=== PATIENT | female | born 1960 | race Two or more races ===

== ENCOUNTER 2020-11-15 08:45 | Emergency (ER) | payer MEDICARE, OTHER ==
[~2020-11-15] VITALS: Ht 175.3 cm; Wt 138.3 kg
[2020-11-15] MEDS ORDERED: ONDANSETRON HCL/PF - ER 4 MG/2 ML VIAL IV ONE (09:00)
[2020-11-15] MEDS ORDERED: MORPHINE SULFATE INJ 2 MG/ML DISP.SYRIN IV ONE (09:00)
[2020-11-15] MEDS ORDERED: MORPHINE SULFATE INJ 4 MG/ML DISP.SYRIN ONE (09:19)
[2020-11-15] MEDS ORDERED: ONDANSETRON HCL/PF 4 MG/2 ML VIAL ONE (09:19)
--- NOTE | 2020-11-15 09:40 | NUR ---
pt rec'd to er c/o rt shoulder apin 10 pt fell iv started left ac 20g labs drawn sent to lab with isidro .
[2020-11-15] MEDS ORDERED: PROPOFOL 20 ML IV ONE (09:55)
[2020-11-15] MEDS ORDERED: PROPOFOL 200 MG/20 ML VIAL IV ONE ×2 (10:00)
--- NOTE | 2020-11-15 10:46 | NUR ---
pt meds given per md order for pain. sent to ct with moises farley pt pt stated 03/17 pt consented for conscious sedation for rt shoulder reposition. rt at bedside
--- NOTE | 2020-11-15 10:48 | NUR ---
1024 pt given 80 of hallie wasserman and rt assistance pt on monitors ; xray done vitasl documented
[2020-11-15] MEDS ORDERED: TRAM50TA2 PO (11:29)
--- NOTE | 2020-11-15 11:43 | NUR ---
pt stated feeling better tolerating water cont to monitor
[2020-11-15 12:25] VITALS: BP 113/78
--- NOTE | 2020-11-15 12:25 | NUR ---
IV removed. Catheter intact and site benign. Pressure and 4x4 applied to site. No bleeding noted. Patient discharged to home in stable condition. Written and verbal after care instructions given. Patient verbalizes understanding of instruction.
== END 2020-11-15 12:25 | disposition home or self-care (01) ==
LOC: ER 08:58
DX: S42.91XA Fracture of right shoulder girdle, part unspecified, initial encounter for closed fracture (principal); S43.004A Unspecified dislocation of right shoulder joint, initial encounter; S00.83XA Contusion of other part of head, initial encounter; I10 Essential (primary) hypertension; I48.91 Unspecified atrial fibrillation; E66.01 Morbid (severe) obesity due to excess calories; Z68.42 Body mass index [BMI] 45.0-49.9, adult; Z88.5 Allergy status to narcotic agent; W01.0XXA Fall on same level from slipping, tripping and stumbling without subsequent striking against object, initial encounter; Y93.89 Activity, other specified; Y92.89 Other specified places as the place of occurrence of the external cause; Y99.8 Other external cause status
CPT/HCPCS: 23650; 70450; 73030 ×2; 96374; 96375; 99152; 99285; J2270; J2405 ×2; J2704; J7030; G0500

== ENCOUNTER 2020-11-18 15:52 | Emergency (ER) | payer MEDICARE, OTHER ==
[~2020-11-18] VITALS: Ht 175.3 cm; Wt 139.7 kg
[~2020-11-18 15:52] MED LIST: TRAM50TA2 PO
--- NOTE | 2020-11-18 17:00 | NUR ---
patient came in to the er c/o periorbital heamtoma/blurring of vision today, seen 2 days ago for right shoulder pain. On room air, breathing evenly and unlabored. Connected to the monitor and pulse ox. Will continue to monitor accordingly.
--- NOTE | 2020-11-18 17:44 | NUR ---
wheeled patient to ct accompanied by annelise for ct
[2020-11-18] MEDS ORDERED: CEPH500C2 PO (19:05)
--- NOTE | 2020-11-18 19:05 | NUR ---
REC'D REPORT FROM GOMEZ NARVAEZ FOR DAVE
[2020-11-18] MEDS ORDERED: SULF1TAB48 PO (19:06)
--- NOTE | 2020-11-18 20:09 | NUR ---
Patient discharged to home in stable condition. Written and verbal after care instructions given. Patient verbalizes understanding of instruction. Pt ambulatory with a steady gait
[2020-11-18 20:12] VITALS: BP 135/56
== END 2020-11-18 20:09 | disposition home or self-care (01) ==
LOC: ER 15:57
DX: L03.211 Cellulitis of face (principal); I48.91 Unspecified atrial fibrillation; I10 Essential (primary) hypertension; F32.9 Major depressive disorder, single episode, unspecified; G89.29 Other chronic pain; Z98.890 Other specified postprocedural states; Z88.5 Allergy status to narcotic agent; Z60.2 Problems related to living alone; Z79.899 Other long term (current) drug therapy; W19.XXXA Unspecified fall, initial encounter; Y93.89 Activity, other specified; Y92.89 Other specified places as the place of occurrence of the external cause; Y99.8 Other external cause status
CPT/HCPCS: 70486-TC

== ENCOUNTER 2021-08-11 11:49 | Emergency (ER) | payer OTHER ==
[~2021-08-11] VITALS: Ht 175.3 cm; Wt 136.1 kg
[~2021-08-11 11:49] MED LIST changes: +CEPH500C2 PO; +SULF1TAB48 PO
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
--- NOTE | 2021-08-11 11:53 | NUR ---
CONNECTED PT TO POX AND MONITOR. TACHY [address] JOHNSON AWARE. SAFETY MEASURES IN PLACE
--- NOTE | 2021-08-11 12:11 | NUR ---
R WRIST #20G S/L PATENT AND INTACT; BLOOD COLLECTED AND GIVEN TO LAB
[2021-08-11 12:24] LABS: BASOPHILS # (AUTO) 0.1 K/uL (0.0-0.2); BASOPHILS % (AUTO) 0.8 % (0.0-2.0); EOSINOPHILS % (AUTO) 3.6 % (0.0-6.0); HEMATOCRIT 39 % (33-45); HEMOGLOBIN 12.5 g/dL (11.5-14.8); LYMPHOCYTES # (AUTO) 2.7 K/uL (0.8-4.8); LYMPHOCYTES % (AUTO) 28.5 % (20.0-44.0); MEAN CORPUSCULAR HGB CONC 32 g/dl (31.0-36.0); MEAN CORPUSCULAR VOLUME 89 fL (82-100); MONOCYTES # (AUTO) 0.6 K/uL (0.1-1.30); NEUTROPHILS # (AUTO) 5.8 K/uL (1.8-8.9); NEUTROPHILS % (AUTO) 61.1 % (43.0-81.0); PLATELET COUNT (AUTO) 250 K/uL (150-450); RED BLOOD CELL COUNT(AUTO) 4.36 MIL/uL (4.0-5.2); WHITE BLOOD COUNT (AUTO) 9.5 K/uL (4.3-11.0)
--- NOTE | 2021-08-11 12:47 | NUR ---
SIGNAL TOWER DIRECTOR AT PT'S BEDSIDE
[2021-08-11 12:57] LABS: CARBON DIOXIDE 22 mmol/L (21-32); CHLORIDE 108 mmol/L (98-107); CREATININE 0.8 mg/dL (0.6-1.3); GLUCOSE 116 mg/dL (74-106); POTASSIUM 3.6 mmol/L (3.5-5.1); SODIUM SERUM 145 mmol/L (136-145); UREA NITROGEN, BLOOD 12 mg/dL (7-18)
[2021-08-11] MEDS ORDERED: ALBUTEROL FS 2.5 MG/3 ML VIAL.NEB NEB ONE (13:00)
[2021-08-11] MEDS ORDERED: IPRATROPIUM NEB FS 0.5 MG/2.5 ML AMPUL.NEB NEB ONE (13:00)
[2021-08-11] MEDS ORDERED: predniSONE 20 MG TABLET PO ONE (13:00)
[2021-08-11] MEDS ORDERED: METOPROLOL TARTRATE 50 MG TABLET PO ONE (13:00)
[2021-08-11] MEDS ORDERED: predniSONE 20 MG TABLET ONE (13:10)
[2021-08-11] MEDS ORDERED: METOPROLOL TARTRATE 50 MG TABLET ONE (13:11)
[2021-08-11] MEDS ORDERED: IPRATROPIUM NEB FS 0.5 MG/2.5 ML AMPUL.NEB ONE (13:22)
[2021-08-11] MEDS ORDERED: ALBUTEROL FS 2.5 MG/3 ML VIAL.NEB ONE (13:22)
--- NOTE | 2021-08-11 13:27 | NUR ---
KRZYSZTOF RT AT PT'S BEDSIDE FOR TREATMENT
[2021-08-11] MEDS ORDERED: FUROSEMIDE 20 MG/2 ML VIAL ONE (15:07)
[2021-08-11] MEDS ORDERED: FUROSEMIDE 20 MG/2 ML VIAL IV ONE (15:30)
[2021-08-11 17:25] VITALS: BP 142/93
== END 2021-08-11 17:33 | disposition home or self-care (01) ==
LOC: ER 11:56
DX: I48.20 Chronic atrial fibrillation, unspecified (principal); I11.0 Hypertensive heart disease with heart failure; I50.9 Heart failure, unspecified; Z88.5 Allergy status to narcotic agent; Z60.2 Problems related to living alone; Z79.899 Other long term (current) drug therapy
CPT/HCPCS: 36415; 71045; 80048; 84484; 85025; 93005 ×3; 94640; 96374; 99284; J1940; J7512

== ENCOUNTER 2023-08-15 12:59 | Emergency (ER) | payer MEDICARE, OTHER ==
[~2023-08-15] VITALS: Ht 175.3 cm; Wt 110.2 kg
[2023-08-15 13:04] VITALS: BP 148/98; TEMP 98.4; O2SAT 100
== END 2023-08-15 15:08 | disposition home or self-care (01) ==
LOC: ER 13:15
DX: S73.102A Unspecified sprain of left hip, initial encounter (principal); I10 Essential (primary) hypertension; I48.91 Unspecified atrial fibrillation; Z88.5 Allergy status to narcotic agent; W01.0XXA Fall on same level from slipping, tripping and stumbling without subsequent striking against object, initial encounter; Y93.89 Activity, other specified; Y92.89 Other specified places as the place of occurrence of the external cause; Y99.8 Other external cause status; Z60.2 Problems related to living alone
CPT/HCPCS: 72170-TC; 73502

== ENCOUNTER 2023-10-29 12:03 | Emergency (ER) | payer MEDICARE, OTHER ==
[~2023-10-29] VITALS: Ht 180.3 cm; Wt 99.8 kg
[2023-10-29] MEDS ORDERED: ONDANSETRON HCL/PF 4 MG/2 ML VIAL ONE (12:58)
[2023-10-29] MEDS ORDERED: HYDROMORPHONE 1 MG/1 ML DISP.SYRIN ONE (12:59)
[2023-10-29] MEDS: HYDROMORPHONE 1 MG/1 ML DISP.SYRIN IV ONE (13:04)
[2023-10-29] MEDS: ONDANSETRON HCL/PF - ER 4 MG/2 ML VIAL IV ONE (13:05)
[2023-10-29 13:27] LABS: BASOPHILS # (AUTO) 0.1 K/uL (0.0-0.2); BASOPHILS % (AUTO) 0.7 % (0.0-2.0); EOSINOPHILS # (AUTO) 0.1 K/uL (0.0-0.7); EOSINOPHILS % (AUTO) 0.6 % (0.0-6.0); HEMATOCRIT 36 % (33-45); HEMOGLOBIN 11.4 g/dL (11.5-14.8); LYMPHOCYTES # (AUTO) 2.4 K/uL (0.8-4.8); LYMPHOCYTES % (AUTO) 27.2 % (20.0-44.0); MEAN CORPUSCULAR HEMOGLOBIN 26 PG (26.0-33.0); MEAN CORPUSCULAR HGB CONC 32 g/dl (31.0-36.0); MEAN CORPUSCULAR VOLUME 83 fL (82-100); MONOCYTES # (AUTO) 0.6 K/uL (0.1-1.30); MONOCYTES % (AUTO) 6.3 % (2.0-12.0); NEUTROPHILS # (AUTO) 5.8 K/uL (1.8-8.9); NEUTROPHILS % (AUTO) 65.2 % (43.0-81.0); PLATELET COUNT (AUTO) 257 K/uL (150-450); RED BLOOD CELL COUNT(AUTO) 4.34 MIL/uL (4.0-5.2); RED CELL DISTRIBUTION WIDTH 16.6 % (11.5-15.0); WHITE BLOOD COUNT (AUTO) 8.9 K/uL (4.3-11.0)
[2023-10-29 13:30] LABS: POTASSIUM 4.2 mmol/L (3.5-5.1)
[2023-10-29] MEDS ORDERED: OXYC-128 PO (14:23)
[2023-10-29 15:23] VITALS: BP 124/78; TEMP 98; O2SAT 96
== END 2023-10-29 15:00 | disposition home or self-care (01) ==
LOC: ER 12:23
DX: M54.50 Low back pain, unspecified (principal); I10 Essential (primary) hypertension; I48.91 Unspecified atrial fibrillation; G89.29 Other chronic pain; Z88.5 Allergy status to narcotic agent; Z60.2 Problems related to living alone
CPT/HCPCS: 99285; 96374; 72131; 96375; 85025; 80048; 36415; J2405 ×2; J1170

== ENCOUNTER 2023-11-26 14:17 | Emergency (ER) | payer MEDICARE, OTHER ==
[~2023-11-26] VITALS: Ht 180.3 cm; Wt 99.8 kg
[~2023-11-26 14:17] MED LIST changes: +OXYC-128 PO
[2023-11-26 14:29] VITALS: TEMP 99.1
[2023-11-26] MEDS ORDERED: KETOROLAC TROMETHAMINE 15 MG/ML VIAL ONE (15:00)
[2023-11-26] MEDS ORDERED: ONDANSETRON HCL/PF 4 MG/2 ML VIAL ONE (15:00)
[2023-11-26] MEDS ORDERED: MORPHINE SULFATE INJ 4 MG/ML DISP.SYRIN ONE (15:01)
[2023-11-26] MEDS: ONDANSETRON HCL/PF 4 MG/2 ML VIAL IVP ONE (15:02)
[2023-11-26] MEDS: IV NS 0.9% 1,000 ML BAG IV ONE (15:02)
[2023-11-26] MEDS: MORPHINE SULFATE INJ 2 MG/ML DISP.SYRIN IV ONE (15:02)
[2023-11-26] MEDS: KETOROLAC TROMETHAMINE 15 MG/ML VIAL IV ONE (15:02)
[2023-11-26 15:06] LABS: BASOPHILS # (AUTO) 0.1 K/uL (0.0-0.2); BASOPHILS % (AUTO) 1.4 % (0.0-2.0); EOSINOPHILS # (AUTO) 0.3 K/uL (0.0-0.7); EOSINOPHILS % (AUTO) 3.3 % (0.0-6.0); HEMATOCRIT 32 % (33-45); HEMOGLOBIN 9.9 g/dL (11.5-14.8); LYMPHOCYTES # (AUTO) 1.9 K/uL (0.8-4.8); LYMPHOCYTES % (AUTO) 22.1 % (20.0-44.0); MEAN CORPUSCULAR HEMOGLOBIN 26 PG (26.0-33.0); MEAN CORPUSCULAR HGB CONC 31 g/dl (31.0-36.0); MEAN CORPUSCULAR VOLUME 81 fL (82-100); MONOCYTES # (AUTO) 0.6 K/uL (0.1-1.30); MONOCYTES % (AUTO) 6.6 % (2.0-12.0); NEUTROPHILS # (AUTO) 5.7 K/uL (1.8-8.9); NEUTROPHILS % (AUTO) 66.6 % (43.0-81.0); PLATELET COUNT (AUTO) 241 K/uL (150-450); RED BLOOD CELL COUNT(AUTO) 3.89 MIL/uL (4.0-5.2); RED CELL DISTRIBUTION WIDTH 17.4 % (11.5-15.0); WHITE BLOOD COUNT (AUTO) 8.5 K/uL (4.3-11.0)
[2023-11-26] MEDS ORDERED: diphenhydrAMINE HCL 50 MG/ML VIAL ONE (15:14)
[2023-11-26] MEDS: diphenhydrAMINE HCL 50 MG/ML VIAL IV ONE (15:21)
[2023-11-26 15:36] LABS: ALANINE AMINOTRANSFERASE 18 U/L (12-78); ALBUMIN 3.3 g/dL (3.4-5.0); ALKALINE PHOSPHATASE 68 U/L (46-116); ASPARTATE AMINOTRANSFERASE 25 U/L (15-37); BILIRUBIN,DIRECT 0.1 mg/dL (0.0-0.2); BILIRUBIN,TOTAL 0.7 mg/dL (0.2-1.0); CALCIUM, SERUM 9.3 mg/dL (8.5-10.1); CARBON DIOXIDE 29 mmol/L (21-32); CHLORIDE 107 mmol/L (98-107); GLUCOSE 104 mg/dL (74-106); LIPASE 15 U/L (16-77); POTASSIUM 4.7 mmol/L (3.5-5.1); SODIUM SERUM 140 mmol/L (136-145); TOTAL PROTEIN, SERUM 7.1 g/dL (6.4-8.2); UREA NITROGEN, BLOOD 17 mg/dL (7-18)
[2023-11-26 16:53] LABS: APPEARANCE,URINE CLEAR (CLEAR); BILIRUBIN,URINE NEGATIVE (NEGATIVE); BLOOD, URINE NEGATIVE Ery/uL (NEGATIVE); COLOR,URINE YELLOW (YELLOW); KETONES,URINE NEGATIVE (NEGATIVE); LEUKOCYTE ESTERASE ,URINE NEGATIVE (NEGATIVE); NITRITE, URINE POSITIVE (NEGATIVE); PROTEIN,URINE NEGATIVE (NEGATIVE); UGLUCOSE NEGATIVE (NEGATIVE)
[2023-11-26 17:11] LABS: ADD URINE CULTURE YES; BACTERIA,URINE Many /HPF (None Seen); WBC,URINE NONE SEEN /HPF (0-3)
[2023-11-26 17:12] LABS: SQUAMOUS EPITHELIAL CELL,UR Few /HPF (None Seen)
[2023-11-26] MEDS ORDERED: IBUP-1953 PO (17:30)
[2023-11-26 18:10] VITALS: BP 149/94; O2SAT 98
== END 2023-11-26 18:11 | disposition home or self-care (01) ==
LOC: ER 14:40
DX: R10.12 Left upper quadrant pain (principal); G89.29 Other chronic pain; I10 Essential (primary) hypertension; Z88.5 Allergy status to narcotic agent; Z60.2 Problems related to living alone
CPT/HCPCS: 99285; 74176; 96374; 71045; 96361; 96375 ×3; 93005; 85025; 80048; 87086; 83690; 80076; 81001; 36415; 84484; J1200; J2270; J2405; J7030; J1885

== ENCOUNTER 2025-02-22 20:34 | Emergency (ER) | payer MEDICARE, OTHER ==
[~2025-02-22] VITALS: Ht 172.7 cm; Wt 113.4 kg
[~2025-02-22 20:34] MED LIST changes: +IBUP-1953 PO
[2025-02-22] MEDS ORDERED: HYDROMORPHONE HCL 2 MG TABLET PO PRN (21:00)
[2025-02-22] MEDS ORDERED: HYDROMORPHONE HCL 2 MG TABLET ONE (21:06)
[2025-02-22] MEDS ORDERED: HYDR-3976 GT (21:10)
[2025-02-22] MEDS ORDERED: HYDROCODONE/APAP 10/325MG TABLET ONE (21:14)
[2025-02-22] MEDS: HYDROCODONE/APAP 10/325MG TABLET PO ONE (21:15)
[2025-02-22 21:27] VITALS: BP 120/77; TEMP 98; O2SAT 94
== END 2025-02-22 21:36 | disposition home or self-care (01) ==
LOC: ER 20:39
DX: M54.50 Low back pain, unspecified (principal); G89.29 Other chronic pain; F41.9 Anxiety disorder, unspecified; F32.A Depression, unspecified; I10 Essential (primary) hypertension; E11.9 Type 2 diabetes mellitus without complications; E78.00 Pure hypercholesterolemia, unspecified; I48.91 Unspecified atrial fibrillation; J45.909 Unspecified asthma, uncomplicated; Z79.01 Long term (current) use of anticoagulants; Z88.5 Allergy status to narcotic agent; Z60.2 Problems related to living alone; Z79.899 Other long term (current) drug therapy